=== PATIENT | female | born 2000 ===

== ENCOUNTER 2024-04-20 11:10 | Emergency (ER) | payer OTHER ==
[~2024-04-20] VITALS: Ht 177.8 cm; Wt 59.0 kg
[2024-04-20] MEDS ORDERED: Mupirocin22 GM TOP (11:29)
[2024-04-20] MEDS ORDERED: CEPH500 PO (11:29)
== END 2024-04-20 12:10 | disposition home or self-care (01) ==
LOC: ER 11:10
DX: L01.00 Impetigo, unspecified (principal); Z91.011 Allergy to milk products; Z91.012 Allergy to eggs; Z91.010 Allergy to peanuts; Z91.018 Allergy to other foods; Z59.89 Other problems related to housing and economic circumstances
CPT/HCPCS: 81000; 99283